=== PATIENT | female | born 1945 | race Caucasian/White ===

== ENCOUNTER → 2017-09-03 | Outpatient (CLI) | payer OTHER ==
--- NOTE | 2017-09-03 12:56 | PCVCIMAG ---
APPROVED REPORT Study performed: 09/03/2017 08:24:39 EXAM: Comprehensive 2D, Doppler, and color-flow Echocardiogram Patient Location: Echo lab Status: routine BSA: 1.89 HR: 75 bpmBP: 124/84 mmHg Rhythm: NSR Other Information Study Quality: Adequate Risk Factors: Cardiac Risk Factors: HTN Indications Dyspnea Elevated coronary calcium score 2D Dimensions LVEF(%): 36.20 (>50%) IVSd: 14.17 (7-11mm) LVDd: 41.20 mm PWd: 12.98 (7-11mm) LVDs: 34.14 (25-40mm) Left Atrium: 39.45 (27-40mm) Aortic Root: 36.70 mm LV Single Plane 4CH: 67.17 % LV Single Plane 2CH: 60.41 %Casarez's LVEF: 63.79 % Biplane EF: 63.8 % Volumes Left Atrial Volume (Systole) Single Plane 4CH: 81.88 mLSingle Plane 2CH: 64.87 mL LA ESV Index: 40.00 mL/m2 Aortic Valve AoV Peak Andrei.: 1.44 m/s AO Peak Gr.: 8.30 mmHgLVOT Max P.27 mmHg LVOT Max V: 1.03 m/s AI Vmax: 4.70 m/s AI Twiggs: 3.67 m/s2 AI PHT: 374.57 ms Mitral Valve E/A Ratio: 0.9 MV Decel. Time: 209.36 ms MV E Max Andrei.: 0.62 m/s MV A Andrei.: 0.67 m/s IVRT: 103.81 ms Pulmonary Valve PV Peak Andrei.: 0.74 m/sPV Peak Gr.: 2.17 mmHg Pulmonary Vein P Vein S: 0.42 m/sP Vein A: 0.35 m/s P Vein D: 0.53 m/sP Vein A Dur.: 128.0 msec P Vein S/D Ratio: 0.79 Tricuspid Valve TR Peak Andrei.: 2.82 m/s TR Peak Gr.: 31.78 mmHg Left Ventricle The left ventricle is normal size. There is normal LV segmental wall motion. Mild concentric left ventricular hypertrophy. Left ventricular systolic function is normal. The left ventricular ejection fraction is within the normal range. LVEF is 65%. Grade I - abnormal relaxation pattern. Right Ventricle The right ventricle is normal size. The right ventricular systolic function is normal. Atria Left atrium is mildly dilated. The right atrium size is normal. Aortic Valve The aortic valve is normal in structure. Mild aortic regurgitation. There is no aortic valvular stenosis. Mitral Valve The mitral valve is normal in structure. Mild to moderate mitral regurgitation. No evidence of mitral valve stenosis. Tricuspid Valve The tricuspid valve is normal in structure. Mild tricuspid regurgitation with PAP of 39 mmHg. Pulmonic Valve The pulmonary valve is normal in structure. There is trace pulmonic valvular regurgitation. Great Vessels The aortic root is normal in size. IVC is normal in size and collapses with >50% inspiration Pericardium There is no pericardial effusion. <Conclusion> The left ventricle is normal size. Mild concentric left ventricular hypertrophy. Left ventricular systolic function is normal. Grade I - abnormal relaxation pattern. The right ventricle is normal size. Left atrium is mildly dilated. Mild aortic regurgitation. Mild to moderate mitral regurgitation. Mild tricuspid regurgitation with PAP of 39 mmHg.
== END | disposition home or self-care (01) ==
LOC: PCVCIMAG 08:26
PROVIDERS: ATTEND Internal Medicine Cardiovascular Disease
DX: I08.3 Combined rheumatic disorders of mitral, aortic and tricuspid valves (principal); I10 Essential (primary) hypertension; R06.00 Dyspnea, unspecified; E83.59 Other disorders of calcium metabolism
CPT/HCPCS: 93306

== ENCOUNTER → 2017-09-06 | Outpatient (CLI) | payer OTHER ==
[~2017-09-06] MED LIST: REGADENOSON 0.4 MG/5 ML DISP.SYRIN. IV ONE
--- NOTE | 2017-09-06 12:27 | PCVCIMAG ---
APPROVED REPORT Exam: Nuclear Stress Test Indication: CAD , Dyspnea, High Ca Score Patient Location: Out-Patient Stress Nurse: Neyda León RN, Ann Snell RN [place] Tech:Yisel CHASITY Son Ht: 5 ft 5 in Wt: 180 lbs BSA: 1.89 m2 HR: 88 bpm BP: 190/90 mmHg BMI: 29.9 Rhythm: NSR Medical History Medical History: HTN, Hyperlipidemia, Age, Former Smoker Medications: Atorvastatin, Plaquenil, Synthroid, Methotrexate Allergies: Chloromycetin, Sulfanilamide Pretest Chest Pain Characteristics: No chest pain Physical Disabilities: Knees Stress Test Details Stress Test: Pharmacologic stress was paired with low level exercise. Reason for pharmacologic stress test: physical limitation, balance. HR Resting HR: 88 bpmMax Heart Rate (APMHR): 151 bpm Max HR Achieved: 133 bpmTarget HR (85% APMHR): 128 bpm % of APMHR: 88 Recovery HR: 93 bpm BP Resting BP: 190/90 mmHg Max BP: 180/90 mmHg ECG Resting ECG: Sinus Rhythm Stress ECG: Sinus Tachycardia ST Change: Non-ischemic Recovery ECG: Sinus Rhythm Clinical Reason for Termination: Completed protocol Stress Symptoms: Dyspnea Exercise duration: 4 min 00 sec Exercise capacity: 1.6 METs Symptoms resolved during recovery. NM EXAM: Myocardial Perfusion REST/STRESS Imaging Protocol: Rest Tc-99m/Stress Tc-99m 1 day Resting Data Rest SPECT myocardial perfusion imaging was performed in supine position 45 minutes following the intravenous injection of 10.8 mCi of Tc-99m Sestamibi. Time of rest injection: 0850 Date: 09/06/2017 Administration Route: IV Administration Site: Right AC Pharmacologic Stress Pharmacologic stress test was performed by injecting Regadenoson 0.4 mg IV push followed by the intravenous injection of 34.3 mCi of Tc-99m Sestamibi. Time of stress injection: 1015 Date: 09/06/2017 Administration Route: IV Administration Site: Right AC Study Quality Study: Good Artifact: Moderate Breast artifact Study Data Post stress, the left ventricular ejection was 74%.. SSS: 10 SRS: 10 SDS: 1 TID = 0.69. Perfusion There is a medium area of moderately reduced uptake in the mid segment of the anterior wall which is seen on the stress images as well as the resting images. This area thickens and moves normally and is most consistent with attenuation artifact. Wall Motion Normal left ventricular wall motion. Nuclear Conclusion ECG Findings: negative for ischemia Clinical Findings: non-diagnostic Nuclear Findings: negative for ischemia This study is of low probability for inducible ischemia or prior infarct. Normal global and segmental LV systolic function. Artifact: Moderate Breast artifact
== END | disposition home or self-care (01) ==
LOC: PCVCIMAG 08:42
PROVIDERS: ATTEND Internal Medicine Cardiovascular Disease
DX: I25.10 Atherosclerotic heart disease of native coronary artery without angina pectoris (principal); I10 Essential (primary) hypertension; E78.00 Pure hypercholesterolemia, unspecified; I34.0 Nonrheumatic mitral (valve) insufficiency; E83.59 Other disorders of calcium metabolism; Z79.82 Long term (current) use of aspirin; Z79.899 Other long term (current) drug therapy; Z87.891 Personal history of nicotine dependence
CPT/HCPCS: 78452; 80061; 93005; 93017; A9500; G0463; J2785

== ENCOUNTER → 2018-03-18 | Outpatient (CLI) | payer OTHER | END | disposition home or self-care (01) | LOC: PCVCCLINIC 15:59 | DX: I10 Essential (primary) hypertension (principal); E78.00 Pure hypercholesterolemia, unspecified; R93.1 Abnormal findings on diagnostic imaging of heart and coronary circulation; Z79.82 Long term (current) use of aspirin; Z79.899 Other long term (current) drug therapy; Z87.891 Personal history of nicotine dependence | CPT/HCPCS: 93005; G0463 ==

== ENCOUNTER → 2019-03-18 | Outpatient (CLI) | payer OTHER | END | disposition home or self-care (01) | LOC: PCVCCLINIC 11:30 | PROVIDERS: ATTEND Internal Medicine Cardiovascular Disease | DX: I25.10 Atherosclerotic heart disease of native coronary artery without angina pectoris (principal); I10 Essential (primary) hypertension; E78.00 Pure hypercholesterolemia, unspecified; Z87.891 Personal history of nicotine dependence; Z88.8 Allergy status to other drugs, medicaments and biological substances | CPT/HCPCS: 93005; G0463 ==